=== PATIENT | male | born 1960 | race Caucasian/White ===

== ENCOUNTER 2018-07-17 13:57 | Day surgery (SDC) | payer OTHER ==
[~2018-07-17] VITALS: Ht 180.3 cm; Wt 69.6 kg
[~2018-07-17 13:57] MED LIST: ATOR20TA37 PO; GABA300C10 PO; METH750T87 PO; TRAM50TA2 PO
[2018-07-17] MEDS ORDERED: LACTATED RINGERS 1,000 ML IV SCH (14:14)
[2018-07-17 14:31] VITALS: BP 115/75
[2018-07-17] MEDS ORDERED: BUPIVACAINE 0.25% ONE (15:26)
[2018-07-17] MEDS ORDERED: EPINEPHRINE 1 MG/ML, 1ML ONE (15:26)
[2018-07-17] MEDS ORDERED: FENTANYL PF 250 MCG/5ML ONE (15:56)
[2018-07-17] MEDS ORDERED: MIDAZOLAM 1 MG/ML, 2ML ONE (15:56)
[2018-07-17] MEDS ORDERED: PROPOFOL 50 ML ONE (15:57)
[2018-07-17] MEDS ORDERED: ROCURONIUM 10 MG/ML,10ML ONE (16:52)
[2018-07-17] MEDS ORDERED: SUCCINYLCHOLINE 20 MG/ML, 10ML ONE (16:52)
[2018-07-17] MEDS ORDERED: EPHEDRINE 50 MG/ML, 1ML ONE (16:52)
[2018-07-17] MEDS ORDERED: DEXAMETHASONE 4 MG/ML, 1ML ONE (16:59)
[2018-07-17] MEDS ORDERED: CEFAZOLIN 1,000 MG ONE (17:05)
[2018-07-17] MEDS ORDERED: HALOPERIDOL 5 MG/ML IV PRN (17:30)
[2018-07-17] MEDS ORDERED: hydrALAzine 20 MG/ML, 1ML IV PRN (17:30)
[2018-07-17] MEDS ORDERED: ACETAMINOPHEN 325 MG TABLET PO PRN (17:30)
[2018-07-17] MEDS ORDERED: ALBUTEROL SULFATE 2.5 MG/3 ML NPPB PRN (17:30)
[2018-07-17] MEDS ORDERED: PROMETHAZINE 12.5 MG SUPP PR PRN (17:30)
[2018-07-17] MEDS ORDERED: EPHEDRINE 50 MG/ML, 1ML IVPush PRN (17:30)
[2018-07-17] MEDS ORDERED: PROMETHAZINE 25 MG/ML, 1ML IV PRN (17:30)
[2018-07-17] MEDS ORDERED: LABETALOL 5MG/ML, 20ML IV PRN (17:30)
[2018-07-17] MEDS ORDERED: OXYcodone 5 MG/5 ML ORAL.SOL UDC PO PRN (17:30)
[2018-07-17] MEDS ORDERED: FENTANYL PF 100 MCG/2ML IV PRN (17:30)
[2018-07-17] MEDS ORDERED: MIDAZOLAM 1 MG/ML, 2ML IV PRN (17:30)
[2018-07-17] MEDS ORDERED: ONDANSETRON ODT 8 MG PO PRN (17:30)
[2018-07-17] MEDS ORDERED: HYDROmorphone 2 MG/ML, 1ML IVPush PRN (17:30)
[2018-07-17] MEDS ORDERED: ONDANSETRON 2MG/ML, 2ML IV PRN (17:30)
[2018-07-17] MEDS ORDERED: DIAZEPAM 5 MG/ML, 2ML IVPush PRN (17:30)
[2018-07-17] MEDS ORDERED: MEPERIDINE/PF 25MG/0.5ML IVPush PRN (17:30)
[2018-07-17] MEDS ORDERED: MORPHINE SULFATE 4 MG/ML, 1ML IVPush PRN (17:30)
[2018-07-17] MEDS ORDERED: ACETAMINOPHEN 650 MG/20.3 ML UDC ONE (18:50)
[2018-07-17] MEDS ORDERED: OXYcodone 5 MG/5 ML ORAL.SOL UDC ONE (18:50)
== END 2018-07-17 22:40 | disposition home or self-care (01) ==
LOC: OR 13:57 → 4NOR 20:00 → OR 22:40
PROVIDERS: ATTEND Urology
DX: N50.812 Left testicular pain (principal); Z72.89 Other problems related to lifestyle; F17.210 Nicotine dependence, cigarettes, uncomplicated; Z79.899 Other long term (current) drug therapy; E78.00 Pure hypercholesterolemia, unspecified; Z98.890 Other specified postprocedural states; Z90.49 Acquired absence of other specified parts of digestive tract
CPT/HCPCS: 55899; J0171; J0330; J0690; J1100; J2250; J2704; J3010; J3490; G0378

== ENCOUNTER 2019-05-22 08:05 | Day surgery (SDC) | payer OTHER ==
[2019-05-20 10:39] VITALS: BP 123/75
[~2019-05-22] VITALS: Ht 180.3 cm; Wt 71.8 kg
[~2019-05-22 08:05] MED LIST changes: +BUPIVACAINE/PF 0.25% ONE; +HYDR-63 PO; +LACTATED RINGERS 1,000 ML IV SCH
[2019-05-22] MEDS ORDERED: GABAPENTIN 300 MG CAPSULE PO ONE (08:30)
[2019-05-22] MEDS ORDERED: SCOPOLAMINE PATCH, 1.5MG PATCH.TD72 TD ONE (08:30)
[2019-05-22] MEDS ORDERED: ACETAMINOPHEN 500 MG TABLET PO ONE (08:30)
[2019-05-22] MEDS ORDERED: LACTATED RINGERS 1,000 ML IV SCH (08:31)
[2019-05-22] MEDS ORDERED: MIDAZOLAM 1 MG/ML, 2ML ONE (08:43)
[2019-05-22] MEDS ORDERED: FENTANYL PF 250 MCG/5ML ONE (08:43)
[2019-05-22 08:52] VITALS: BP 106/71
[2019-05-22] MEDS ORDERED: LIDOCAINE-MPF 1%, 2ML INFIL ONE (09:00)
[2019-05-22] MEDS ORDERED: CEFAZOLIN 1,000 MG ONE (09:44)
[2019-05-22] MEDS ORDERED: PROPOFOL 10 MG/ML, 20ML ONE (09:44)
[2019-05-22] MEDS ORDERED: ONDANSETRON 2MG/ML, 2ML ONE (09:44)
[2019-05-22] MEDS ORDERED: ROCURONIUM 10 MG/ML,10ML ONE (09:44)
[2019-05-22] MEDS ORDERED: DEXAMETHASONE 4 MG/ML, 1ML ONE (09:44)
[2019-05-22] MEDS ORDERED: SUCCINYLCHOLINE 20 MG/ML, 10ML ONE (09:44)
[2019-05-22] MEDS ORDERED: FENTANYL PF 100 MCG/2ML ONE ×2 (10:51→11:12)
[2019-05-22] MEDS ORDERED: OXYcodone 5 MG/5 ML ORAL.SOL UDC ONE ×2 (10:52→11:06)
[2019-05-22] MEDS ORDERED: KETOROLAC 30 MG/1 ML IV PRN (11:00)
[2019-05-22] MEDS ORDERED: OXYcodone 5 MG/5 ML ORAL.SOL UDC PO PRN (11:00)
[2019-05-22] MEDS ORDERED: ONDANSETRON 2MG/ML, 2ML IVPush PRN (11:00)
[2019-05-22] MEDS ORDERED: LABETALOL 5MG/ML, 20ML IV PRN (11:00)
[2019-05-22] MEDS ORDERED: ALBUTEROL SULFATE 2.5 MG/3 ML NPPB PRN (11:00)
[2019-05-22] MEDS ORDERED: hydrALAzine 20 MG/ML, 1ML IV PRN (11:00)
[2019-05-22] MEDS ORDERED: MEPERIDINE/PF 25MG/0.5ML IVPush PRN (11:00)
[2019-05-22] MEDS ORDERED: METOCLOPRAMIDE 5 MG/ML, 2ML IV PRN (11:00)
[2019-05-22] MEDS ORDERED: PROMETHAZINE 25 MG/ML, 1ML IV PRN (11:00)
[2019-05-22] MEDS: FENTANYL PF 100 MCG/2ML IV PRN ×2 (11:02→11:07)
[2019-05-22] MEDS ORDERED: KETOROLAC 30 MG/1 ML ONE (11:12)
[2019-05-22] MEDS ORDERED: HYDROmorphone 1 MG/ML, 1ML VIAL ONE (11:20)
[2019-05-22] MEDS: HYDROmorphone 1 MG/ML, 1ML INJ IV PRN ×2 (11:25→11:30)
== END 2019-05-22 13:30 | disposition home or self-care (01) ==
LOC: OUT 08:05
PROVIDERS: ATTEND Orthopaedic Surgery
DX: S43.431A Superior glenoid labrum lesion of right shoulder, initial encounter (principal); M19.011 Primary osteoarthritis, right shoulder; M75.41 Impingement syndrome of right shoulder; M75.51 Bursitis of right shoulder; F17.200 Nicotine dependence, unspecified, uncomplicated; Z72.89 Other problems related to lifestyle; Z79.891 Long term (current) use of opiate analgesic; Z79.899 Other long term (current) drug therapy; X58.XXXA Exposure to other specified factors, initial encounter; Y93.89 Activity, other specified; Y92.89 Other specified places as the place of occurrence of the external cause; Y99.8 Other external cause status
CPT/HCPCS: 29823; 29824; 29826; 64415; J0330; J0690; J1100; J1170; J1885; J2250; J2405; J2704; J3010; J3490; J7120